=== PATIENT | male | born 1950 | race Caucasian/White ===

== ENCOUNTER 2018-09-07 08:47 | Outpatient (CLI) | payer OTHER, SELFPAY ==
[2018-09-08 08:39] LABS: PSA, Screening 0.4 ng/ml (0-4.5)
== END 2018-09-07 09:07 ==
PROVIDERS: PCP Family Medicine; Visit Provider Family Medicine
DX: Z12.5 Encounter for screening for malignant neoplasm of prostate (principal)
CPT/HCPCS: 36415; 84153

== ENCOUNTER 2019-01-24 08:15 | Outpatient (CLI) | payer OTHER, SELFPAY ==
[2019-01-24 11:00] LABS: Abs Immature Grans 0.03 k/cumm (0.0-0.09); Absolute Basophil Count 0.03 k/cumm (0.0-0.2); Absolute Eosinophil Count 0.07 k/cumm (0.0-0.7); Absolute Lymphocyte Count 1.08 k/cumm (1.2-3.4); Absolute Monocyte Count 0.45 k/cumm (0.11-0.7); Absolute Neutrophil Count 2.93 k/cumm (1.2-6.7); Basophils % 0.7; Eosinophils % 1.5; HCT 46.7 % (40.0-50.0); HGB 15.4 g/dL (13.5-17.5); Immature Grans % 0.7; Lymphocytes % 23.5; Mean Corpuscular Hemoglobin 30.3 pg (27.0-33.0); Mean Corpuscular Volume 91.7 fL (80-95); Mean Platelet Volume 11.3 fL (8.0-11.0); Monocytes % 9.8; Neutrophils % 63.8; Platelet Count 146 x1000/uL (130-400); RBC 5.09 m/cumm (4.50-6.00); White Blood Cell Count 4.59 k/cumm (4.4-10.8)
[2019-01-24 11:18] LABS: ALT 33 U/L (12-78); AST 29 U/L (15-37); Albumin 3.8 g/dL (3.4-5.0); Alkaline Phosphatase 45 U/L (46-116); Amylase 51 U/L (25-115); Anion Gap 11.2 mmol/L (3-11); BUN 22 mg/dL (7-18); Bilirubin, Total 0.6 mg/dL (0.2-1.0); CO2 24.8 mmol/L (21.0-32.0); Calcium 9.3 mg/dL (8.5-10.1); Chloride 105 mmol/L (98-107); Glucose 93 mg/dL (70-100); Lipase 127 U/L (73-393); Potassium 4.3 mmol/L (3.5-5.1); Sodium 141 mmol/L (136-145); TSH (W/Ref FT4) 1.07 uIU/mL (0.358-3.74); Total Protein 6.6 g/dL (6.4-8.2)
[2019-01-24 11:27] LABS: GGT 31 U/L (15-85)
[2019-01-25 11:49] LABS: IgA 182 mg/dL (85-499); Interpretation SEE COMMENTS; Tissue Transglutaminase IgA <1.2 U/mL (<4.0)
== END 2019-01-24 08:35 ==
PROVIDERS: PCP Family Medicine; Visit Provider Family Medicine
DX: K92.89 Other specified diseases of the digestive system (principal); R53.83 Other fatigue
CPT/HCPCS: 36415; 80053; 82784; 83516; 83690; 82150; 82977; 84443; 85025

== ENCOUNTER 2019-01-25 07:59 | Outpatient (REF) | payer OTHER, SELFPAY ==
[2019-01-26 12:20] LABS: Helicobacter pylori Ag, Feces Negative (NEGAT)
== END 2019-01-25 08:19 ==
LOC: LBN 07:59
PROVIDERS: PCP Family Medicine; Visit Provider Family Medicine
DX: K92.89 Other specified diseases of the digestive system (principal)
CPT/HCPCS: 87329; 87338

== ENCOUNTER 2019-02-06 01:49 | Outpatient (CLI) | payer OTHER, SELFPAY ==
--- NOTE | 2019-02-06 12:17 | DI.CT_ITS ---
SYMPTOMS/DIAGNOSIS: PERSISTENT NAUSEA AND ABDOMINAL PAIN, R11.0, R10.9 CT OF THE ABDOMEN AND PELVIS: Comparison is made with August,. Images were performed from the lung bases through the ischial tuberosities after IV and oral contrast. The heart size is normal. The lung bases show mild motion, but appear clear. The liver, gallbladder, spleen, pancreas and adrenals are unremarkable. Multiple parapelvic cysts are noted in the left kidney. There is a small cortical cyst inferiorly. No stones or hydronephrosis are seen. The oral contrast extends to the distal small bowel. The colon is not opacified. There is a moderate quantity of stool. There is no bowel wall thickening or inflammatory change. There are diverticula of the sigmoid colon, but no evidence of diverticulitis. The stomach and small bowel are unremarkable. There is a left hip prosthesis creating mild artifact in the level of the pelvis. The bladder and prostate are unremarkable. No inguinal or abdominal wall hernias are seen. Degenerative disc changes are greatest at L4-5 on the right side. Scoliosis is also present. Schmorl's nodes are again noted in both superior and inferior endplates of L3. IMPRESSION: Diverticulosis without evidence of diverticulitis.
[2019-02-06] MEDS: Omnipaque 350 MG/ML 100 ML BTL IJ (13:43)
[2019-02-06] MEDS: Breeza Beverage 473 ML BTL PO ×2 (13:44→13:45)
== END 2019-02-06 02:09 ==
PROVIDERS: PCP Family Medicine; Visit Provider Family Medicine
DX: R10.9 Unspecified abdominal pain (principal); R11.0 Nausea; K57.30 Diverticulosis of large intestine without perforation or abscess without bleeding
CPT/HCPCS: 74177; J3490

== ENCOUNTER 2019-05-18 08:22 | Outpatient (CLI) | payer OTHER, SELFPAY ==
--- NOTE | 2019-05-18 08:15 | DI.RAD_ITS ---
EXAM: XR HIP LT COMPLETE AP PELVIS INDICATION: HIP PAIN. COMPARISON: No exams were available for comparison TECHNIQUE: 2D digital imaging was performed. FINDINGS: Some grade 2 views were obtained in position on the left. The components appear well seated. Modera te degenerative changes of the right hip noted as well. IMPRESSION:
== END 2019-05-18 08:42 ==
PROVIDERS: PCP Family Medicine; Visit Provider Student in an Organized Health Care Education/Training Program
DX: M25.552 Pain in left hip (principal); Z96.642 Presence of left artificial hip joint; M16.11 Unilateral primary osteoarthritis, right hip
CPT/HCPCS: 73502

== ENCOUNTER 2019-07-06 02:20 | Outpatient (CLI) | payer OTHER, SELFPAY ==
--- NOTE | 2019-07-06 10:37 | DI.NM_ITS ---
EXAM: NM BONE SCAN 3 PHASE CLINICAL HISTORY: painful L TONY, pain in hip region after hip replacement,m25.559,z96.649 TECHNIQUE: Injected Dose: 24.8 mCi Tc-99m MDP COMPARISON: XR HIP LT COMPLETE AP PELVIS from 05/18/2019 FINDINGS: Perfusion: Symmetric. No abnormal increased radiotracer uptake. Blood Pool: Symmetric. No abnormal increased radiotracer uptake. Delayed: There is variable mild to moderate increased radiotracer uptake surrounding the femoral comp onent of the left hip prosthesis. There is normal radiotracer uptake in the kidneys and urinary blad sachi. There is a focus of radiotracer uptake on the right at the L5 vertebral body. This likely repr esents degenerative disease. There is symmetric increased radiotracer uptake in the shoulders bilate rally which is likely degenerative. There is a mild right convex scoliotic curvature of the lumbar s pine. IMPRESSION: 1. Increased radiotracer uptake around the femoral component of the left hip prosthesis on the delaye d imaging suspicious for loosening.
== END 2019-07-06 02:40 ==
PROVIDERS: PCP Family Medicine; Visit Provider Student in an Organized Health Care Education/Training Program
DX: M25.552 Pain in left hip (principal); Z96.642 Presence of left artificial hip joint; Z47.1 Aftercare following joint replacement surgery
CPT/HCPCS: 78315

== ENCOUNTER 2019-09-30 07:03 | Emergency (ER) | payer OTHER, SELFPAY ==
--- NOTE | 2019-09-30 07:09 | ED.GENADUL_ITS ---
Discharge Plan Disposition Patient Disposition: HOME Discharge Details Chief Complaint: GenMedical Clinical Impression: Postoperative wound infection of left hip Primary Care Provider: Evy Davis ED Provider: Lauri Vasquez Home Meds and New Rx's Prescriptions: New cephalexin [Keflex] 500 mg capsule 500 mg PO QID Qty: 39 RF: 0 doxycycline hyclate 100 mg tablet 100 mg PO BID Qty: 19 RF: 0 Continued sertraline 50 mg tablet 50 mg PO DAILY Qty: 90 RF: 4 Eliquis 5 mg tablet 5 mg PO BID Qty: 60 RF: 1 gabapentin 300 mg Capsule 300 mg PO QHS RF: 0 Discharge Instructions Instructions: Surgical Site Infections (ED) Additional Instructions: Please take full course of antibiotic (doxycycline and keflex) as prescribed. Please contact your primary care physician to arrange follow-up. Please contact [facility] orthopedic department to follow-up on Wednesday for reassessment. Dr. Comer, [facility] orthopedics, would be happy to answer questions and can be reached at , I would recommend that you take photos of left hip daily to document progression of inflammation. Return to the ER immediately for any worsening or new concerning symptoms. Referrals: Evy Davis MD, [place] [Primary Care Provider] - Discharge Data Discharge Date/Time-TO BE ENTERED AT DEPARTURE: 09/30/19 11:12 Medical Decision Making <Mervin Aguilera MD - Last Filed: 09/30/19 07:29> 69 yo male who denies chronic medical problems comes in with complaint of fever to 100.5. He states he had a revision of prior left hip surgery this week at [facility] and did have a garza placed and is on prophylactic apixaban per patient. He noticed a fever today and has had some discomfort with urination with increased amounts of urination. Denies drainage from surgical site, cough, recent travel abdominal pain, headaches. He is able to ambulate using crutches. His left leg wound from the surgery is closed without drainage but around the wound about 3-4 cm is erythematous warm skin and he states he has noticed some increased discomfort in this area. Could be post op infection, will obtain lab work including cultures, lactate, inflammatory markers and monitor Differential Diagnosis Differential Diagnosis: uti, septic joint, influenza, pna <Lauri Vasquez MD - Last Filed: 10/03/19 22:05> 8:00 -- Care signed out by Dr. Aguilera. Please see his documentation regarding initial ED presentation and course. Plan at signout was to follow-up on labs and x-ray and reassess patient. 9:15 --x-ray of the left hip reviewed and interpreted by radiology: There is no evidence of acute fracture. There is no evidence of malalignment or dislocation. X-ray of the left femur interpreted by radiology: Left total hip replacement. There is no evidence of acute fracture. There is no evidence of malalignment or dislocation. Labs reviewed: Normal white count. Normal creatinine. Urinalysis normal. Normal lactate. Significantly elevated ESR and CRP. I reassessed patient and he does seem to have erythema surrounding surgical wound. Erythema border was marked with skin marker. I am concerned about postoperative cellulitis. I will initiate treatment with cefazolin 2 g IV. Will consult orthopedics. --I called and spoke with on-call Dr. Arzate who recommends discussing case with [facility] orthopedics given lack of interventional resources here at [facility]. 9:45 -- I spoke with Dr. Porras, orthopedics bridge/structure inspection team leader at [facility], I discussed ED presentation and course including all diagnostics and my concern for cellulitis versus potential deeper space infection, she recommends starting keflex PO and discharging with close outpatient at [facility] ortho clinic. She recommends against vancomycin. I specifically inquired if transfer indicated so that she could assess the postoperative wound and she noted that this was not necessary at this time. Plan as outlined by patient's nuclear weapons specialist will be to discharge on Keflex with follow-up with orthopedics on Wednesday. HPI <Mervin Aguilera MD - Last Filed: 09/30/19 07:29> General Mode of arrival: ambulatory . Date/Time Provider Initiated Documentation: 09/30/19 07:04 . Limitations to Documentation: no limitations . Information obtained by: patient . History of Present Illness 69 year old M presents to the emergency department with the chief complaint of fever, described as moderate, Patient started experiencing this hour(s) (3) and it has been constant. No relieving factors improve symptom(s), No exacerbating factors reported . Patient notes other (dysuria). Patient did receive the following treatments prior to arrival, none Related Data Home Medications Medication Instructions Recorded Confirmed sertraline 50 mg tablet 50 mg PO DAILY #90 tab 04/18/19 09/30/19 apixaban 5 mg tablet 5 mg PO BID #60 tab 09/22/19 09/30/19 cephalexin [Keflex] 500 mg PO QID #39 cap 09/30/19 doxycycline hyclate 100 mg PO BID #19 tab 09/30/19 gabapentin 300 mg PO QHS 09/30/19 09/30/19 Previous Rx's Medication Instructions Recorded sertraline 50 mg tablet 50 mg PO DAILY #90 tab 04/18/19 apixaban 5 mg tablet 5 mg PO BID #60 tab 09/22/19 cephalexin [Keflex] 500 mg PO QID #39 cap 09/30/19 doxycycline hyclate 100 mg PO BID #19 tab 09/30/19 Allergies Allergy/AdvReac Type Severity Reaction Status Date / Time No Known Allergies Allergy Verified 09/30/19 07:18 Review of Systems <Mervin Aguilera MD - Last Filed: 09/30/19 07:29> All systems reviewed & are unremarkable except as noted in HPI and below Cardiovascular Cardiovascular: Denies chest pain and Denies dyspnea Respiratory Respiratory: Denies cough and Denies dyspnea Gastrointestinal Gastrointestinal: Denies abdominal pain, Denies nausea and Denies vomiting PFSH <Mervin Aguilera MD - Last Filed: 09/30/19 07:29> Medical History Benign non-nodular prostatic hyperplasia with lower urinary tract symptoms (Inactive 05/21/15) Squamous cell carcinoma of scalp (Inactive 05/21/15) Surgical History Diagnostic Laproscopy (12/20/17) VENTRAL HERNIA NORMAL EXAM;[facility] History of arthroplasty of left hip (Acute) 2014 Social History Smoking/Tobacco Use Status: Never Alcohol Intake: current Drug use: Never Substance use type: does not use Do you feel safe at home: Yes Do you feel safe in your relationship?: Yes Exam <Mervin Aguilera MD - Last Filed: 09/30/19 07:29> Const General: no acute distress Orientation: alert HENMT Head: normal to inspection Ears: external ears normal General nose exam: external nose normal Mouth: moist mucous membranes Eyes General: appearance normal, both eyes and all related structures Neck Neck: normal visual inspection Resp Effort & Inspection: normal respiratory effort and able to speak in complete sentences Cardio Rate: regular rate Skin General skin exam: no rashes or lesions noted Neuro General: alert and oriented x3 Extrem General: normal to inspection Psych Mental Status: mental status grossly normal Sign Out <Mervin Aguilera MD - Last Filed: 09/30/19 07:29> Sign Out Data: Sign Out Comment: left hip replacement revision this past week at [facility] now with fever to 100.5 and some erythema around surgical site. Follow up on lab results, imaging and dispo Last updated by Mervin Aguilera MD at 09/30/19 07:40
[2019-09-30 07:14] VITALS: BP 124/71; PULSE 87; RESP 16; TEMP 37.4; O2SAT 95
[2019-09-30 07:20] LABS: Bilirubin Negative (Negative); Blood Negative (Negative); Clarity Clear (Clear); Glucose Negative (Negative); Ketones Negative (Negative); Leukocyte Esterase Negative (Negative); Nitrite Negative (Negative); Urobilinogen 0.2 EU/dL (Up TO 0.2)
[2019-09-30 07:21] VITALS: RESP 16
[2019-09-30] MEDS: Apixaban 2.5 MG TAB PO (07:31)
[2019-09-30 07:55] LABS: Lactate 0.8 mmol/L (0.6-1.4)
[2019-09-30 07:57] LABS: Abs Immature Grans 0.03 k/cumm (0.0-0.09); Absolute Basophil Count 0.03 k/cumm (0.0-0.2); Absolute Eosinophil Count 0.08 k/cumm (0.0-0.7); Absolute Lymphocyte Count 0.78 k/cumm (1.2-3.4); Absolute Monocyte Count 0.77 k/cumm (0.11-0.7); Absolute Neutrophil Count 5.59 k/cumm (1.2-6.7); Basophils % 0.4; Eosinophils % 1.1; HCT 37.2 % (40.0-50.0); HGB 12.3 g/dL (13.5-17.5); Immature Grans % 0.4 %; Lymphocytes % 10.7; Mean Corp. HGB Concentration 33.1 g/dL (32.0-36.0); Mean Corpuscular Hemoglobin 30.6 pg (27.0-33.0); Mean Corpuscular Volume 92.5 fL (80-95); Mean Platelet Volume 10.8 fL (8.0-11.0); Monocytes % 10.6; Neutrophils % 76.8; Platelet Count 171 x1000/uL (130-400); RBC 4.02 m/cumm (4.50-6.00); RBC Distribution Width 13.8 % (11.8-14.1); White Blood Cell Count 7.28 k/cumm (4.4-10.8)
[2019-09-30 08:11] LABS: C-Reactive Protein 11.82 mg/dL (0.0-0.3)
[2019-09-30 08:12] LABS: ALT 44 U/L (16-63); AST 74 U/L (15-37); Alkaline Phosphatase 34 U/L (46-116); Anion Gap 8.6 mmol/L (3-11); BUN 17 mg/dL (7-18); Bilirubin, Total 0.6 mg/dL (0.2-1.0); CO2 27.4 mmol/L (21.0-32.0); CREATININE 0.99 mg/dL (0.70-1.30); Calcium 8.6 mg/dL (8.5-10.1); Chloride 106 mmol/L (98-107); Glucose 103 mg/dL (74-106); Magnesium 1.9 mg/dL (1.8-2.4); Sodium 142 mmol/L (136-145); Total Protein 6.6 g/dL (6.4-8.2)
[2019-09-30 08:22] LABS: PTT Activated 25.3 sec (21.0-31.4); Prothrombin Time 10.3 sec (9.3-11.0)
--- NOTE | 2019-09-30 08:25 | DI.RAD_ITS ---
EXAM: XR PELVIS AP INDICATION: hip surgery this week, fever, pain. COMPARISON: XR HIP LT COMPLETE AP PELVIS from 05/18/2019 XR FEMUR LT from 09/30/2019 TECHNIQUE: 2D digital imaging was performed. FINDINGS: The patient has had a recent revision of the left total hip replacement. No acute fracture or disloc ation is seen. There are degenerative changes seen in the lumbar spine. The soft tissues are unrema rkable. IMPRESSION: No acute fracture or dislocation.
--- NOTE | 2019-09-30 08:33 | DI.RAD_ITS ---
EXAM: XR FEMUR LT INDICATION: fever, pain. hip surgery this week. COMPARISON: XR HIP LT COMPLETE AP PELVIS from 05/18/2019 TECHNIQUE: 2D digital imaging was performed. FINDINGS: The patient has had a left total hip revision since the prior examination 05/18/2019. There is a elias ency around the medial aspect of the femoral component. Correlation should be made with the postoper ative images from the revised prosthetic. No acute fracture or dislocation is present. The soft tis sues are unremarkable. IMPRESSION: No acute fracture or dislocation.
[2019-09-30 08:42] VITALS: PULSE 79; TEMP 37.1; O2SAT 94
[2019-09-30 08:43] LABS: ESR 59 mm/hr (1-20)
--- NOTE | 2019-09-30 08:47 | DI.VRAD_ITS ---
PROCEDURE INFORMATION: Exam: XR Pelvis Exam date and time: 09/30/2019 8:24 AM Age: 69 years old Clinical indication: Prior surgery; Surgery date: 3-7 days post-operative; Surgery type: Hip replacement this week. Fever and pain TECHNIQUE: Imaging protocol: XR pelvis. Views: 1 or 2 view. COMPARISON: No relevant prior studies available. FINDINGS: Bones/joints: Left total hip replacement Degenerative changes in the lumbar spine and right hip There is no evidence of acute fracture.There is no evidence of malalignment or dislocation. Soft tissues: Unremarkable. IMPRESSION: There is no evidence of acute fracture.There is no evidence of malalignment or dislocation. Dictated and Authenticated by: Karen Anne MD. Ordering:YASSINE Jeffries MD
--- NOTE | 2019-09-30 08:48 | DI.VRAD_ITS ---
PROCEDURE INFORMATION: Exam: XR Left Femur Exam date and time: 09/30/2019 8:25 AM Age: 69 years old Clinical indication: Prior surgery; Surgery date: 3-7 days post-operative; Surgery type: Left hip surgery this week, pain and fever. TECHNIQUE: Imaging protocol: XR Left femur. Views: Five views. COMPARISON: No relevant prior studies available. FINDINGS: Bones/joints: Left total hip replacement. There is no evidence of acute fracture.There is no evidence of malalignment or dislocation. Soft tissues: Soft tissue swelling laterally consistent with recent surgery IMPRESSION: 1. Left total hip replacement. 2. There is no evidence of acute fracture.There is no evidence of malalignment or dislocation. Dictated and Authenticated by: Karen Anne MD. Ordering:YASSINE Jeffries MD
[2019-09-30] MEDS: ceFAZolin 2 GM/50 ML BAG IVPB (09:17)
[2019-09-30] MEDS: Doxycycline Hyclate 100 MG CAP PO (10:24)
--- NOTE | 2019-09-30 11:16 | OCONE_ITS ---
Date of service: 09/30/19 Time of Service: 11:16 History of Present Illness History of Present Illness Chief Complaint: Left hip infection Narrative: Chief Complaint: Left hip postoperative infection HPI: 69-year-old male postop day #3 status post left hip [address] Adam Ricci at [facility] on 09/27/2023 aseptic loosening of the femoral component after a primary anterior hip replacement done in the past. Patient discharged home postoperative day #1 following 24 hours of perioperative cefazolin antibiotics. States all specimens/cultures from surgery are negative as far as he knows for infection. Has had 1 reported fever this morning greater than 100 degrees associated with feeling unwell. Denies any drainage or purulence from the incision. Presents to the ER with his daughter for evaluation the left hip cellulitis. 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 No attempted treatments yet for the inflammation/cellulitis. His revision arthroplasty surgeon is reportedly out of town/unavailable this weekend. Consult Reason Left hip prosthetic joint infection Assessment and Plan Assessment and plan (1) Postoperative wound infection of left hip: Status: Acute Assessment and plan: 69-year-old male postop day #3 status post left hip to component revision arthroplasty for aseptic loosening by Dr. Adam Ricci at [facility] on 09/27/2019 Patient appears to have an impressive amount of cellulitis surrounding the surgical site without wound dehiscence, purulent drainage, or other obvious evidence of an early deep space infection. Recommended reaching out to primary arthroplasty surgeon for treatment recommendations as any postoperative infection over a joint replacement warrants heightened concern and this is an infected surgical site over revision arthroplasty. The ER physician Dr. Lauri Vasquez spoke with the on-call covering orthopedist who did not recommend urgent evaluation at [facility] and recommended Keflex oral antibiotic treatment. I have discussed the findings, treatment options, and my recommendations at length with the patient who is well-informed as a medical doctor and the present of his daughter. I discussed the urgent but not emergent need to treat this problem. The patient is not septic. Does not require transfer to [facility] or inpatient admission at this time. The options for treatment today include surgical irrigation debridement, interventional radiology aspiration of the hip through an anterior approach to avoid area of cellulitis, and antibiotics. Would recommend any irrigation debridement should be done by the primary surgeon. Any IR aspiration would have to be done at [facility] as we do not have interventional radiologist here at [facility]. The patient is okay trying a course of oral antibiotics. 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 The patient is agreeable to doxycycline and Keflex antibiotics. I think this a reasonable regimen. I also recommend probiotics to be used daily while on antibiotics. I recommend close monitoring for signs of worsening like recurrent fevers, or signs of deep space infection deep infection like wound dehiscence or purulent drainage, which would necessitate surgical irrigation and debridement within 7 to 14 days in order to have the best chance of preserving the revision hip replacement and avoiding significant biofilm formation necessitating hip component expectation. Recommend the patient follow-up with his primary arthroplasty revision surgeon Dr. Ricci at [facility] in 2 to 3 days. Otherwise, I am available to reassess the wound here at [facility] orthopedics on Wednesday or Wednesday. All questions were answered. The patient and his daughter agree and understand treatment plan. The patient has my personal cell phone number and will keep me updated. Review of Systems Constitutional Constitutional: Reports as per HPI and Reports fever(s) Musculoskeletal Musculoskeletal: Reports abnormal gait and Reports muscle weakness Integumentary/Breasts Skin/Breast: Reports erythema and Reports rash Neurologic Neurologic: Reports abnormal gait [facility] Medical History Benign non-nodular prostatic hyperplasia with lower urinary tract symptoms (Inactive 05/21/15) Squamous cell carcinoma of scalp (Inactive 05/21/15) Surgical History Diagnostic Laproscopy (12/20/17) VENTRAL HERNIA NORMAL EXAM;[facility] History of arthroplasty of left hip (Acute) 2014 Social History Smoking/Tobacco Use Status: Never Alcohol Intake: current Drug use: Never Substance use type: does not use Do you feel safe at home: Yes Do you feel safe in your relationship?: Yes Exam Const General: cooperative, comfortable and no acute distress Orientation: alert, awake and not confused Limitations: mental status not altered and no language barrier Resp Effort & Inspection: normal respiratory effort, able to speak in complete sentences, no audible wheezes and no grunting General: deferred Skin General skin exam: no ecchymosis and erythema Rashes: rashes noted Neuro General: alert, awake and oriented x3 Cognition: normal cognition Speech: speech normal Extrem Other: Left hip: Posterior lateral incision covered with operative silver impregnated bandage. Minimal drainage. No purulence. Photos of incision from bandage previously removed do not show any wound dehiscence, drainage, or purulence. Impressive erythema surrounding large area about operative site. Erythema blanches easily with pressure and is largely nontender. No appreciable fluid collection. Skin intact. No signs of thrombophlebitis or DVT. Results Last Vital Signs Temp 98.8 F 09/30/19 08:42 Pulse 79 09/30/19 08:42 Resp 16 09/30/19 07:21 BP 124/71 09/30/19 07:14 Pulse Ox 94 L 09/30/19 08:42 Labs Result diagrams: 09/30/19 07:44 09/30/19 07:44 Labs: Laboratory Results - last 24 hr 09/30/19 09/30/19 09/30/19 07:12 07:44 07:44 WBC RBC Hgb Hct MCV MCH MCHC RDW Plt Count MPV Immature Gran % Neutrophils % Lymphocytes % Monocytes % Eosinophils % Basophils % Absolute Neutrophils Absolute Lymphocytes Absolute Monocytes Absolute Eosinophils Absolute Basophils ESR PT INR APTT Sodium 142 Potassium 4.0 Chloride 106 Carbon Dioxide 27.4 Anion Gap 8.6 BUN 17 Creatinine 0.99 Estimated GFR/1.73 m2 >= 60.00 Glucose 103 Lactate 0.8 Calcium 8.6 Magnesium 1.9 Total Bilirubin 0.6 AST 74 H ALT 44 Alkaline Phosphatase 34 L C-Reactive Protein Total Protein 6.6 Albumin 3.0 L Urine Color Yellow Urine Clarity Clear Urine pH 6.0 Ur Specific [place] 1.020 Urine Protein Negative Urine Ketones Negative Urine Blood Negative Urine Nitrite Negative Urine Bilirubin Negative Urine Urobilinogen 0.2 Ur Leukocyte Esterase Negative Urine Glucose Negative 09/30/19 09/30/19 09/30/19 07:44 07:44 07:44 WBC 7.28 RBC 4.02 L Hgb 12.3 L Hct 37.2 L MCV 92.5 MCH 30.6 MCHC 33.1 RDW 13.8 Plt Count 171 MPV 10.8 Immature Gran % 0.4 Neutrophils % 76.8 Lymphocytes % 10.7 Monocytes % 10.6 Eosinophils % 1.1 Basophils % 0.4 Absolute Neutrophils 5.59 Absolute Lymphocytes 0.78 L Absolute Monocytes 0.77 H Absolute Eosinophils 0.08 Absolute Basophils 0.03 ESR PT 10.3 INR 1.0 APTT 25.3 Sodium Potassium Chloride Carbon Dioxide Anion Gap BUN Creatinine Estimated GFR/1.73 m2 Glucose Lactate Calcium Magnesium Total Bilirubin AST ALT Alkaline Phosphatase C-Reactive Protein 11.82 H Total Protein Albumin Urine Color Urine Clarity Urine pH Ur Specific [place] Urine Protein Urine Ketones Urine Blood Urine Nitrite Urine Bilirubin Urine Urobilinogen Ur Leukocyte Esterase Urine Glucose 09/30/19 07:44 WBC RBC Hgb Hct MCV MCH MCHC RDW Plt Count MPV Immature Gran % Neutrophils % Lymphocytes % Monocytes % Eosinophils % Basophils % Absolute Neutrophils Absolute Lymphocytes Absolute Monocytes Absolute Eosinophils Absolute Basophils ESR 59 H PT INR APTT Sodium Potassium Chloride Carbon Dioxide Anion Gap BUN Creatinine Estimated GFR/1.73 m2 Glucose Lactate Calcium Magnesium Total Bilirubin AST ALT Alkaline Phosphatase C-Reactive Protein Total Protein Albumin Urine Color Urine Clarity Urine pH Ur Specific [place] Urine Protein Urine Ketones Urine Blood Urine Nitrite Urine Bilirubin Urine Urobilinogen Ur Leukocyte Esterase Urine Glucose Imaging Additional studies: WBC within normal limits. Significantly elevated ESR and CRP. Imaging Studies: Left hip and femur x-rays show revision acetabulum and femoral components without obvious signs of loosening, periprosthetic fracture, or deep space fluid/gas collection.
== END 2019-09-30 11:12 | disposition home or self-care (01) ==
PROVIDERS: Emergency Medicine; Emergency Provider Student in an Organized Health Care Education/Training Program; PCP Family Medicine
DX: T81.41XA Infection following a procedure, superficial incisional surgical site, initial encounter (principal); Y83.1 Surgical operation with implant of artificial internal device as the cause of abnormal reaction of the patient, or of later complication, without mention of misadventure at the time of the procedure; M25.552 Pain in left hip; G89.18 Other acute postprocedural pain; R30.0 Dysuria; Z79.01 Long term (current) use of anticoagulants
CPT/HCPCS: 36415; 73552; 80053; 85652; 87040; 87449; 96365; 99252; 99284; 72170; 81003; 83605; 83735; 85025; 85610; 85730; 86140; 87086; J0690

== ENCOUNTER 2019-11-05 03:01 | Outpatient (REF) | payer OTHER, SELFPAY | END 2019-11-05 03:21 | LOC: LBN 03:01 | PROVIDERS: PCP Family Medicine; Visit Provider Family Medicine | DX: J06.9 Acute upper respiratory infection, unspecified (principal); Z11.59 Encounter for screening for other viral diseases | CPT/HCPCS: 87449 ==

== ENCOUNTER 2019-11-17 08:40 | Outpatient (CLI) | payer OTHER, SELFPAY ==
[2019-11-20 16:50] LABS: SARS-CoV-2 RNA Undetected (Undetected); SARS-CoV-2 Specimen Source Nasopharynx
== END 2019-11-17 09:00 ==
PROVIDERS: PCP Family Medicine; Visit Provider Family Medicine
DX: Z11.59 Encounter for screening for other viral diseases (principal)
CPT/HCPCS: U0003

== ENCOUNTER 2021-01-10 02:16 | Outpatient (CLI) | payer OTHER, SELFPAY ==
[2021-01-11 14:22] LABS: COVID-19 RT-PCR UVMMC Result Negative (Negative)
== END 2021-01-10 02:17 | disposition home or self-care (01) ==
LOC: LBO 02:16
PROVIDERS: PCP Family Medicine; Visit Provider Emergency Medicine
DX: Z20.822 Contact with and (suspected) exposure to COVID-19 (principal)
CPT/HCPCS: U0003

== ENCOUNTER 2021-02-12 19:38 | Outpatient (REF) | payer OTHER, SELFPAY ==
[2021-02-13 01:11] LABS: COVID-19 RT-PCR UVMMC Result Negative (Negative)
== END 2021-02-12 19:39 | disposition home or self-care (01) ==
LOC: LBN 19:38
PROVIDERS: PCP Family Medicine; Visit Provider Family Medicine
DX: Z20.822 Contact with and (suspected) exposure to COVID-19 (principal)
CPT/HCPCS: U0003

== ENCOUNTER 2021-04-02 19:07 | Outpatient (REF) | payer OTHER, SELFPAY ==
[2021-04-03 18:58] LABS: COVID-19 RT-PCR UVMMC Result Negative (Negative)
== END 2021-04-02 19:08 | disposition home or self-care (01) ==
LOC: LBN 19:07
PROVIDERS: PCP Family Medicine; Visit Provider Family Medicine
DX: Z20.822 Contact with and (suspected) exposure to COVID-19 (principal)
CPT/HCPCS: U0003

== ENCOUNTER 2021-07-01 16:09 | Outpatient (REF) | payer OTHER, SELFPAY ==
[2021-07-02 01:53] LABS: COVID-19 RT-PCR UVMMC Result Negative (Negative)
== END 2021-07-01 16:10 | disposition home or self-care (01) ==
LOC: LBN 16:09
PROVIDERS: PCP Family Medicine; Visit Provider Surgery
DX: Z20.822 Contact with and (suspected) exposure to COVID-19 (principal)
CPT/HCPCS: 87635; U0003

== ENCOUNTER 2021-07-28 03:44 | Outpatient (CLI) | payer OTHER, SELFPAY ==
[2021-07-29 02:18] LABS: COVID-19 RT-PCR UVMMC Result Negative (Negative)
== END 2021-07-28 03:45 | disposition home or self-care (01) ==
LOC: LBO 03:44
PROVIDERS: PCP Family Medicine; Visit Provider Surgery
DX: Z20.822 Contact with and (suspected) exposure to COVID-19 (principal); Z01.818 Encounter for other preprocedural examination
CPT/HCPCS: U0003

== ENCOUNTER 2021-07-30 10:24 | Day surgery (SDC) | payer OTHER, SELFPAY ==
--- NOTE | 2021-07-30 06:42 | W.PREOPHP ---
Date of service: 07/30/21 Time of Service: 10:59 Assessment and Plan Assessment and plan (1) Encounter for colorectal cancer screening: Status: Acute Assessment and plan: Pop is a pleasant 71 year old here for a screening colonoscopy. His last colonoscopy was 10 years ago and was normal. Risks, benefits and complications have been reviewed. Complications include but are not limited to bleeding, perforation, missed small polyp or lesion, sore throat, aspiration, bradycardia, and adverse reaction to the medications. Questions have been entertained and answered to his satisfaction and he wished to proceed. No guarantees were given or implied. History of Present Illness Narrative: Pop is here today to undergo a screening colonoscopy. He denies any changes in bowel habits, melena, hematochezia, abdominal pain, unintentional weight loss or family history of colon cancer. His last colonoscopy was 10 years ago and was normal. He denies any chest pain or palpitations. Review of Systems Constitutional Constitutional: Denies fatigue, Denies fever(s) and Denies headache(s) Eyes Eyes: Denies change in vision ENT Ears, Nose, Mouth, and Throat: Denies dysphagia and Denies headache(s) Cardiovascular Cardiovascular: Denies chest pain, Denies chest pain at rest, Denies irregular heart rhythm, Denies dyspnea and Denies dyspnea on exertion Respiratory Respiratory: Denies cough, Denies dyspnea and Denies dyspnea on exertion Gastrointestinal Gastrointestinal: Reports as per HPI, Denies dysphagia, Denies dyspepsia and Denies heartburn Genitourinary Genitourinary: Denies dysuria, Denies urinary incontinence and Denies urinary urgency Musculoskeletal Musculoskeletal: Reports system reviewed and no additional complaints, except as documented Neurologic Neurologic: Denies headache(s) Endocrine Endocrine: Reports system reviewed and no additional complaints, except as documented and Denies fatigue Hematologic/Lymphatic Hematologic/Lymphatic: Denies easy bruising and Denies lymphadenopathy PFSH All Active Problems (Updated 07/30/21 @ 06:45 by Yuliet Linton MD) Encounter for colorectal cancer screening (Acute) Biceps tendinitis of left shoulder (Acute) Shoulder pain, acute (Acute) TMJ (dislocation of temporomandibular joint) (Acute 05/21/15) Peripheral neuropathy (Acute 05/21/15) Postoperative wound infection of left hip (Acute) Pain in hip region after hip replacement (Acute) Sensorineural hearing loss of combined sites, bilateral (Acute 06/21/17) Medical History (Updated 07/30/21 @ 06:45 by Yuliet Linton MD) Benign non-nodular prostatic hyperplasia with lower urinary tract symptoms (05/21/15) 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) Surgical History Diagnostic Laproscopy (12/20/17) VENTRAL HERNIA NORMAL EXAM;[facility] History of arthroplasty of left hip 2014 Social History Smoking/Tobacco Use Status: Never Smoking risk assessment performed?: Yes Alcohol Intake: current Alcohol Intake frequency: a few times a week Alcohol type: beer Drug use: Never Substance use type: does not use Do you feel safe at home: Yes Do you feel safe in your relationship?: Yes Meds Allergies and Home Medications Allergies Allergy/AdvReac Type Severity Reaction Status Date / Time No Known Allergies Allergy Verified 07/30/21 10:35 Home Medications Medication Instructions Recorded Confirmed Type azelastine-fluticasone 137 mcg-50 1 spray INTRANASAL BID #69 g 05/15/21 07/30/21 Rx mcg/spray nasal spray clonazepam 0.5 mg PO HS 07/29/21 07/30/21 History Exam Const General: cooperative, comfortable and no acute distress HENMT Head: normocephalic and atraumatic Resp Effort & Inspection: normal respiratory effort Auscultation: clear to auscultation bilaterally Cardio Rate: regular rate Rhythm: regular rhythm GI Inspection: normal to inspection Palpation: soft and nontender
--- NOTE | 2021-07-30 06:48 | W.COLOREPORT ---
Colonoscopy Report Date of procedure: 07/30/21 Pre-op diagnosis general: Colon Cancer Screening Post-op diagnosis procedure note: other (polyps) Procedure: Colonoscopy with polypectomy Surgeon: Yuliet Linton Anesthesia Type: General:No Airway (Gene Cárdenas CRNA) Estimated blood loss (mL): 3 Pathology: other (ascending, transverse and sigmoid polyp) Complications: None Disposition: same day Indications: Pop is a pleasant 71 year old here for a screening colonoscopy. His last colonoscopy was 10 years ago and was normal. Risks, benefits and complications have been reviewed. Complications include but are not limited to bleeding, perforation, missed small polyp or lesion, sore throat, aspiration, bradycardia, and adverse reaction to the medications. Questions have been entertained and answered to his satisfaction and he wished to proceed. No guarantees were given or implied. Prep: Miralax/Dulcolax Procedure Start Time: 11:35 Procedure End Time: 11:56 Retraction Time: 11 minutes Findings: 3 < 5 mm polyps Procedure Description: After informed consent was obtained the patient was taken to the procedure room and placed in a left decubitous position. Monitors were applied and a time out was done. The patients name, date of , procedure, allergies to medications and metal in their body was reviewed. The patient was then sedated. Once sedated and comfortable a rectal exam was done. External exam was normal. Internal exam revealed a normal sphincter tone and no palpable masses. The prostate felt smooth and slightly enlarged. The scope was then introduced and retro-flexed. No internal hemorrhoids, polyps or masses were identified on retro-flexion. The scope was then advanced to the cecum without difficulty. The ileocecal vlave and appendiceal orifice were identified. The prep was good. The scope was then slowly retracted over 11 minutes back into the rectum. Polyps were removed with cold forceps in the ascending colon, transverse colon and sigmoid colon. There was no diverticulosis noted. The scope was removed and the patient was woken up and taken back to Same day surgery in stable condition. The patient tolerated the procedure well and there were no immediate complications. Follow up: Follow up will depend on final pathology.
--- NOTE | 2021-07-30 06:49 | W.PM.DSUDISC ---
Discharge Plan Disposition Patient Disposition: HOME Condition: Good Discharge Details Reason For Visit: Colonoscopy Attending Provider: Yuliet Linton Primary Care Provider: Evy Davis Home Meds and New Rx's Prescriptions: Continued azelastine-fluticasone [Dymista] 137-50 mcg/spray spray,non-aerosol 1 spray intranasal BID Qty: 69 RF: 4 clonazepam 0.5 mg tablet 0.5 mg PO HS RF: 0 Discharge Instructions Additional Instructions: Findings: 3 small polyps Follow up: will depend on the pathology results Please call if you develop: fevers >101.5 Nausea or Vomiting Abdominal pain that is not transient Rectal bleeding that is more then a tbsp A hard abdomen and inability to pass gas DAY SURGERY UNIT POST ENDOSCOPY INSTRUCTIONS Instructions for everyone who is given Anesthesia: For your safety, please do the following for the next 24 Hours: a. Do not drive or operate dangerous equipment b. Do not drink alcohol beverages or use any recreational drugs for the first 24 hours or while taking pain medications. The medications in your body may have a reaction that can be dangerous. c. Do not make any important decisions or sign any important papers 1. Generally there are no restrictions on your activity after a day or so has gone by, but you may feel a bit fatigued for a few days. 2. After you arrive home you may have a light meal and return to a normal diet as you can tolerate it without feeling sick to your stomach. 3. After surgery, you may feel pain or discomfort. This should be only transient, but if it persists please contact your doctor. 4. If there are any questions regarding the findings of your procedure, please feel free to contact your doctor. 6. If you are unable to contact your doctor with a problem, contact the hospital at [phone]. 7. Continue all your regular medications unless directed otherwise. I understand the above instructions and have no questions. Signature of Patient or Responsible Adult Escort Date/Time Name of Responsible Adult Escort Signature of Nurse Date/Time Activity:: Activity as Tolerated Diet:: As Tolerated Discharge Orders Discharge Orders: Discharge Order (Routine); Ordered 07/30/21 Ordered By: Yuliet Linton DS: Diagnosis Discharge Diagnosis (1) Encounter for colorectal cancer screening: Status: Acute
[2021-07-30 10:37] VITALS: BP 121/88; PULSE 69; RESP 16; TEMP 36.4; O2SAT 96
--- NOTE | 2021-07-30 10:52 | W.ANESPRE ---
General Info Date of Service Date Performed: 07/30/21 Height: 6 ft 3 in Weight: 85.2 kg Body Mass Index (BMI): 23.4 Surgical Procedure: Operation Date: 07/30/21 11:20 Proposed Procedures Side Surgeon p Colonoscopy Yuliet Linton MD Meds Allergies and Home Medications Allergies Allergy/AdvReac Type Severity Reaction Status Date / Time No Known Allergies Allergy Verified 07/30/21 10:35 Home Medication Medication Instructions Recorded azelastine-fluticasone 137 mcg-50 1 spray INTRANASAL BID #69 g 05/15/21 mcg/spray nasal spray clonazepam 0.5 mg PO HS 07/29/21 Current Visit Medications: Current Medications Generic Name Dose Route Start Last Admin Trade Name Freq PRN Reason Stop Dose Admin Hyoscyamine Sulfate 0.125 mg 07/30/21 06:49 Hyoscyamine 0.125 Mg Sl/Oral/Chew SL DIRECTED PRN Ringer's Solution 1,000 mls @ 80 mls/hr 07/30/21 06:00 IV 08/28/21 23:59 INFUSION [facility] IV Miscellaneous Supplies 1 each 07/30/21 06:00 Iv Access IV 08/28/21 23:59 DIRECTED MAEGAN Ondansetron HCl 4 mg 07/30/21 06:49 Ondansetron 4 Mg/2 Ml Vial IVP Q4H PRN PRN Nausea / Vomiting Sodium Chloride 0 ml 07/30/21 06:00 Normal Saline Flush 10 Ml Syr IV 08/28/21 23:59 PRN PRN Sodium Chloride 0 ml 07/30/21 06:00 Normal Saline 10 Ml Vial IJ 08/28/21 23:59 DIRECTED PRN Sterile Water 0 ml 07/30/21 06:00 Water,Injection,Sterile 10 Ml Vial IJ 08/28/21 23:59 DIRECTED PRN PFSH Active Problems Active Problems: Problem Status Onset Code Encounter for colorectal cancer screening Z12.11, Z12.12 Biceps tendinitis of left shoulder M75.22 Shoulder pain, acute M25.519 TMJ (dislocation of temporomandibular joint) 05/21/15 S03.00XA Peripheral neuropathy 05/21/15 G62.9 Postoperative wound infection of left hip T81.49XA Pain in hip region after hip replacement M25.559, Z96.649 Sensorineural hearing loss of combined sites, bilateral 06/21/17 H90.3 Medical History Medical History (Updated 07/30/21 @ 06:45 by Yuliet Linton MD) Benign non-nodular prostatic hyperplasia with lower urinary tract symptoms (05/21/15) 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) Surgical History Surgical History Diagnostic Laproscopy (12/20/17) VENTRAL HERNIA NORMAL EXAM;[facility] [place] History of arthroplasty of left hip 2014 Tobacco Smoking/Tobacco Use Status: Never Alcohol Alcohol Intake: current Alcohol intake frequency: a few times a week Alcohol type: beer Substance Use Substance use: Never Substance use type: does not use Vital Signs and Lab Results Vital Signs Most Recent Vital Signs in EMR: Most Recent Vital Signs Temp Pulse Resp BP Pulse Ox 36.4 C L 69 16 121/88 96 07/30/21 10:37 07/30/21 10:37 07/30/21 10:37 07/30/21 10:37 07/30/21 10:37 Lab Results Blood Type / Crossmatch: No Data to Display Complete Blood Count: No Data to Display Complete Metabolic Panel: No Data to Display Liver Function Panel: No Data to Display Coagulation Panel: No Data to Display Cardiac Panel: No Data to Display Arterial Blood Gas: No Data to Display Venous Blood Gas: No Data to Display Pancreas Panel: No Data to Display Thyroid Panel: No Data to Display Infectious Disease: Coronavirus (COVID-19)(PCR) Negative (Negative) 07/28/21 11:20 07/28/21 Blood Cultures: No Data to Display Toxicology Panel: No Data to Display Anesthesia Assessment and Plan Anesthesia History Personal History: No History of Anesthesia Complications Family History: No Family History of Anesthesia Complications Exercise Tolerance Exercise Tolerance: Metabolic Equivalents>4 Pertinent Negatives Pertinent Negatives: No Symptoms of GERD Cardiac & Pulmonary Exam Cardiac Exam: Normal S1/S2 Heart Sounds Pulmonary Exam: Clear Bilateral Breath Sounds Implantable Cardiac Device Does patient have a Pacemaker or an ICD?: No Airway Exam Known Difficult Airway: No Mallampati Class: 1 Mouth Opening: Normal (> 3cm) Thyromental Distance: Greater than 3 cm Neck Range of Motion: Full ROM Neck Circumference: Normal Teeth Condition: Normal Dentition ASA Classification ASA Score: ASA 2 Emergency Case?: No NPO Status NPO Status: NPO Clears >2 hours, Solids >8 hours Anesthesia Plan Resuscitation Status: Full Code Anesthesia Technique: General Anesthesia Airway Planned: Natural Airway Monitors Used: Standard Monitors
[2021-07-30] MEDS: Lactated Ringers 1,000 ML 80 ML IV (10:57)
[2021-07-30 11:22] VITALS: BMI 23.4
--- NOTE | 2021-07-30 11:46 | BOWEL_PTH ---
PATIENT: Juan Ramon Bourgeois LOC: [facility] U#:[id number] AGE/SX: 71/M ROOM: RE07/30/[address]: Yuliet Linton MD : 1950 BED: DIS: 07/30/2021 SPEC #: [id number] RECD: 07/30/21 13:09 STATUS: PANCHO BAIG #: [id number] PRABHJOT: 07/30/21 11:[address]: Yuliet Linton DEPT: Surgical Specimen RECD BY: Devorah Whitfield ENTERED: 07/30/21 13:09 SP TYPE: Bowel OTHR DR: Evy Davis MD, DC Tissues: 1 - BIOPSY BOWEL 2 - BIOPSY BOWEL 3 - BIOPSY BOWEL Procedures: GROSS AND MICRO LEVEL 4 Comments: [id number]
[2021-07-30 12:02] VITALS: BP 92/57; PULSE 66; RESP 16; TEMP 36.5; O2SAT 94
[2021-07-30 12:31] VITALS: BP 114/76; PULSE 67; RESP 16; TEMP 36.8; O2SAT 98
--- NOTE | 2021-07-30 14:27 | W.ANESPOSTOP ---
Postoperative Evaluation Date, Time and Location Date Performed: 07/30/21 Time Performed: 12:37 Patient Location: Day Surgery Unit Vital Signs Most Recent Imported Vital Signs: Most Recent Vital Signs Temp Pulse Resp BP Pulse Ox 36.8 C 67 16 114/76 98 07/30/21 12:31 07/30/21 12:31 07/30/21 12:31 07/30/21 12:31 07/30/21 12:31 Pain Score Most Recent Pain Score: Most Recent Pain Score Pain Level 0 07/30/21 12:31 Assessment Mental Status: Awake (Alert & Oriented to Patient Baseline) Airway and Respiratory Function: Patent airway with normal (patient baseline) respiratory exam Cardiovascular Function: Hemodynamically Stable Hydration Status: Adequately Hydrated Nausea & Vomiting: No Nausea or Vomiting Pain: Pt. Denies Any Pain Peripheral Nerve Block: Patient did not receive a nerve block
== END 2021-07-30 13:30 | disposition home or self-care (01) ==
LOC: SUR 10:24
PROVIDERS: PCP Family Medicine; Visit Provider Surgery
PROC: 0DJD8ZZ Inspection of Lower Intestinal Tract, Via Natural or Artificial Opening Endoscopic (ICD-10-PCS; CPT 45378; principal; 2021-07-30 11:15)
DX: Z12.11 Encounter for screening for malignant neoplasm of colon (principal); D12.3 Benign neoplasm of transverse colon; K63.5 Polyp of colon
CPT/HCPCS: 45380; 88305

== ENCOUNTER 2021-09-23 22:03 | Outpatient (REF) | payer OTHER, SELFPAY ==
[2021-09-25 07:14] LABS: COVID-19 RT-PCR UVMMC Result Indeterminate (Negative)
== END 2021-09-23 22:04 | disposition home or self-care (01) ==
LOC: LBN 22:03
PROVIDERS: PCP Family Medicine; Visit Provider Family Medicine
DX: Z86.16 Personal history of COVID-19 (principal); Z20.822 Contact with and (suspected) exposure to COVID-19
CPT/HCPCS: 87635; U0003

== ENCOUNTER 2021-09-25 13:37 | Outpatient (REF) | payer OTHER, SELFPAY ==
[2021-09-26 20:33] LABS: COVID-19 RT-PCR UVMMC Result Negative (Negative)
== END 2021-09-25 13:38 | disposition home or self-care (01) ==
LOC: LBN 13:37
PROVIDERS: PCP Family Medicine; Visit Provider Emergency Medicine
DX: Z86.16 Personal history of COVID-19 (principal)
CPT/HCPCS: U0003

== ENCOUNTER 2022-04-11 11:13 | Emergency (ER) | payer MEDICARE, OTHER, SELFPAY ==
--- NOTE | 2022-04-11 11:16 | ED.GENADUL_ITS ---
Discharge Plan Disposition Patient Disposition: HOME Condition: Stable Discharge Details Chief Complaint: GenMedical Clinical Impression: Close exposure to COVID-19 virus Primary Care Provider: Evy Davis ED Provider: Maximilian Young Home Meds and New Rx's Prescriptions: No Action azelastine-fluticasone [Dymista] 137-50 mcg/spray spray,non-aerosol 1 spray intranasal BID Qty: 69 4RF Rx Instructions: administer into each nostril. dispense 3 bottles acetazolamide 125 mg tablet 125 mg PO BID Qty: 20 0RF Rx Instructions: start 24 hour before accent zolpidem 10 mg tablet 10 mg PO QHS Qty: 30 5RF cephalexin 500 mg capsule 500 mg PO QID Qty: 60 0RF ondansetron 4 mg tablet,disintegrating 4 mg PO Q6H PRN (Reason: nausea and vomiting) Qty: 20 0RF clonazepam 0.5 mg tablet 0.5 mg PO HS Discharge Instructions Additional Instructions: We will call you with your COVID results this afternoon. Please return to the emergency department for any further needs. 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 Will obtain rapid COVID PCR here in the department. No acute distress nontoxic. Will call patient with results. HPI General Date/Time Provider Initiated Documentation: 04/11/22 11:14 . 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 Related Data Home Medications Medication Instructions Recorded Confirmed azelastine-fluticasone 137 mcg-50 1 spray intranasal BID #69 grams 05/15/21 09/08/21 mcg/spray nasal spray (Dymista) clonazepam 0.5 mg tablet 0.5 mg PO HS 07/29/21 09/08/21 acetazolamide 125 mg tablet 125 mg PO BID #20 tabs 09/30/21 zolpidem 10 mg tablet 10 mg PO QHS #30 tabs 10/28/21 cephalexin 500 mg capsule 500 mg PO QID #60 caps 12/09/21 ondansetron 4 mg disintegrating 4 mg PO Q6H PRN nausea and 12/09/21 tablet vomiting #20 tabs Previous Rx's Medication Instructions Recorded azelastine-fluticasone 137 mcg-50 1 spray intranasal BID #69 grams 05/15/21 mcg/spray nasal spray (Dymista) acetazolamide 125 mg tablet 125 mg PO BID #20 tabs 09/30/21 zolpidem 10 mg tablet 10 mg PO QHS #30 tabs 10/28/21 cephalexin 500 mg capsule 500 mg PO QID #60 caps 12/09/21 ondansetron 4 mg disintegrating 4 mg PO Q6H PRN nausea and 12/09/21 tablet vomiting #20 tabs Allergies Allergy/AdvReac Type Severity Reaction Status Date / Time No Known Allergies Allergy Verified 09/08/21 12:49 General Stated Complaint: GenMedical SIMON: 5 Review of Systems Narrative: Review of Systems Constitutional: negative Eyes: negative ENT: negative Cardiovascular: negative Respiratory: negative Gastrointestinal: negative : negative Musculoskeletal: negative Skin: negative Neurologic: negative Psych: negative PFSH All Active Problems (Updated 04/11/22 @ 11:18 by Maximilian Young MD) Close exposure to COVID-19 virus (Acute) COVID-19 (Acute) Annual physical exam (Acute) Fatigue (Acute) Hyperplastic colon polyp (Acute) Tubular adenoma of colon (Acute) Encounter for colorectal cancer screening (Acute) Biceps tendinitis of left shoulder (Acute) Shoulder pain, acute (Acute) TMJ (dislocation of temporomandibular joint) (Acute 05/21/15) Peripheral neuropathy (Acute 05/21/15) Postoperative wound infection of left hip (Acute) Pain in hip region after hip replacement (Acute) Sensorineural hearing loss of combined sites, bilateral (Acute 06/21/17) Medical History (Updated 04/11/22 @ 11:18 by Maximilian Young MD) Benign non-nodular prostatic hyperplasia with lower urinary tract symptoms (05/21/15) 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) Surgical History (Updated 08/01/21 @ 06:40 by Kinjal Kelly RN) Diagnostic Laproscopy (12/20/17) VENTRAL HERNIA NORMAL EXAM;[facility] BEDS AT [facility] History of arthroplasty of left hip 2015 History of colonoscopy (~07/2021) Social History Smoking/Tobacco Use Status: Never Smoking risk assessment performed?: Yes Alcohol Intake: current Alcohol Intake frequency: a few times a week Alcohol type: beer Drug use: Never Substance use type: does not use Do you feel safe at home: Yes Do you feel safe in your relationship?: Yes Exam Narrative Exam Narrative: Physical Examination General: alert, awake, cooperative, resting comfortably, no acute distress HEENT: normocephalic, atraumatic; PERRL, EOM intact, conjunctiva normal; no nasal discharge; moist mucous membranes, oral and pharyngeal mucosa normal, tolerating secretions Neck: supple, trachea midline; full ROM Chest: normal to inspection Respiratory: normal respiratory effort, speaking in full sentences, clear to aus cultation, no wheezing, rales or rhonchi Cardiac: regular rate, regular rhythm, S1S2 intact, no murmurs rubs or gallops GI: abdomen soft, non-tender, non-distended; no palpable mass or hepatosplenom egaly Skin: no lesions, rashes or trauma appreciated Neuro: AAOx3, normal speech, moving all extremities Psych: Appropriate mood and affect Course Vital Signs Vital signs: Comment 04/11/22 11:14
[2022-04-11 11:20] LABS: Source Nasal/Nares
[2022-04-11 11:57] LABS: COVID-19 PCR Negative (Negative)
== END 2022-04-11 11:18 | disposition home or self-care (01) ==
LOC: ER 11:39
PROVIDERS: Emergency Provider Emergency Medicine; PCP Family Medicine
DX: Z20.822 Contact with and (suspected) exposure to COVID-19 (principal)
CPT/HCPCS: 87635; 99281

== ENCOUNTER 2022-04-14 14:43 | Outpatient (CLI) | payer MEDICARE, OTHER, SELFPAY ==
--- NOTE | 2022-04-14 14:30 | RT.EKG_ITS ---
APPROVED REPORT Exam: Resting ECG Reason for Exam: tachycardia Patient Location: O HR:83 bpm ECG Measurements Heart Rate 83 AXIS [place] 178 P 80 QRSd 101 QRS 78 QT 347 T 269 QTc 408 Conclusion Sinus rhythm...normal P axis, V-rate 50- 99 Right atrial enlargement...P>0.25mV 2 lds or<-0.24mV aVR/aVL Left ventricular hypertrophy with repolarization abnormalities Baseline wander in lead(s) V6
== END 2022-04-14 14:44 | disposition home or self-care (01) ==
LOC: DI.CM 14:43
PROVIDERS: PCP Family Medicine; Visit Provider Family Medicine
DX: R00.0 Tachycardia, unspecified (principal); R94.31 Abnormal electrocardiogram [ECG] [EKG]
CPT/HCPCS: 93010

== ENCOUNTER 2022-04-14 19:15 | Outpatient (REF) | payer MEDICARE, SELFPAY ==
[2022-04-14 20:34] LABS: HCT 47.1 % (40.0-50.0); HGB 15.5 g/dL (13.5-17.5); MCH 30.3 pg (27.0-33.0); MCHC 32.9 % (32.0-36.0); MCV 92 fL (80-95); MPV 11.4 fL (8.0-11.0); Platelet Count 169 10^3/uL (130-400); RBC 5.11 10^6/uL (4.36-5.78); RDW 13.1 % (11.8-14.1); RDW-SD 44.7 fL; WBC 6.05 10^3/uL (4.4-10.8)
[2022-04-14 21:02] LABS: ALT 23 U/L (16-63); AST 25 U/L (15-37); Albumin 3.9 g/dL (3.4-5.0); Alkaline Phosphatase 41 U/L (46-116); Anion Gap 3.2 mmol/L (3-11); BUN 24 mg/dL (7-18); Bilirubin, Total 0.5 mg/dL (0.2-1.0); CO2 27.8 mmol/L (21.0-32.0); CREATININE 1.1 mg/dL (0.70-1.30); Calcium 9.1 mg/dL (8.5-10.1); Chloride 105 mmol/L (98-107); Estimated GFR 72.22 (mL/min/1.73m2); Glucose 96 mg/dL (74-106); Magnesium 2.2 mg/dL (1.8-2.4); Potassium 3.6 mmol/L (3.5-5.1); Sodium 136 mmol/L (136-145); TSH (W/Ref FT4) 0.68 uIU/mL (0.36-3.74); Total Protein 6.8 g/dL (6.4-8.2)
== END 2022-04-14 19:16 | disposition home or self-care (01) ==
LOC: LBN 19:15
PROVIDERS: PCP Family Medicine; Visit Provider Family Medicine
DX: R00.0 Tachycardia, unspecified (principal); R53.83 Other fatigue; Z00.00 Encounter for general adult medical examination without abnormal findings
CPT/HCPCS: 80053; 85027; 83735; 84443

== ENCOUNTER 2023-07-12 20:52 | Outpatient (REF) | payer MEDICARE, OTHER, SELFPAY ==
[2023-07-12 16:10] LABS: Calculated LDL 83 mg/dL (<100); Cholesterol 191 mg/dL (<200); HDL Cholesterol 87 mg/dL (40-60); Triglyceride 106 mg/dL (<150)
[2023-07-12 23:28] LABS: PSA, Diagnostic 0.4 ng/mL (<=6.5)
== END 2023-07-12 20:53 | disposition home or self-care (01) ==
LOC: LBN 20:52
PROVIDERS: PCP Family Medicine; Visit Provider Family Medicine
DX: I10 Essential (primary) hypertension (principal); N40.0 Benign prostatic hyperplasia without lower urinary tract symptoms
CPT/HCPCS: 80061; 84153

== ENCOUNTER 2023-07-20 14:57 | Outpatient (CLI) | payer MEDICARE, OTHER, SELFPAY ==
--- NOTE | 2023-07-20 13:00 | DI.RAD_ITS ---
Exam(s) XR SHOULDER LT COMPLETE 2+V EXAM: XR SHOULDER LT COMPLETE 2+V CLINICAL HISTORY: LEFT SHOULDER PAIN. TECHNIQUE: 2D digital imaging was performed. Two views. COMPARISON: No exams were available for comparison FINDINGS: BONES: No acute fracture is present. No bony destructive lesion is seen. Small subchondral cyst supe rior humeral head. JOINTS: No dislocation present. Glenohumeral joint space is maintained. There is minimal spurring a t the glenoid. AC joint shows no significant spurring. SOFT TISSUE: Normal. No soft tissue calcifications. IMPRESSION: Mild degenerative changes. DATA REPOSITORY: RADIATION DOSE DELIVERED:
== END 2023-07-20 14:58 | disposition home or self-care (01) ==
LOC: DIORS 14:57
PROVIDERS: PCP Family Medicine; Referring Provider Family Medicine; Visit Provider Student in an Organized Health Care Education/Training Program
DX: M25.512 Pain in left shoulder (principal); S43.432D Superior glenoid labrum lesion of left shoulder, subsequent encounter; X58.XXXD Exposure to other specified factors, subsequent encounter
CPT/HCPCS: 99213; 73030

== ENCOUNTER 2023-07-23 11:56 | Outpatient (REF) | payer MEDICARE, OTHER, SELFPAY ==
[2023-07-23 20:14] LABS: Anion Gap 10.8 mmol/L (3-11); BUN 19 mg/dL (7-18); CO2 26.2 mmol/L (21.0-32.0); CREATININE 1.1 mg/dL (0.70-1.30); Calcium 9.5 mg/dL (8.5-10.1); Chloride 105 mmol/L (98-107); Estimated GFR 71.32 (mL/min/1.73m2); Glucose 90 mg/dL (74-106); Magnesium 2.1 mg/dL (1.8-2.4); Potassium 4.6 mmol/L (3.5-5.1); Sodium 142 mmol/L (136-145); TSH (W/Ref FT4) 0.94 uIU/mL (0.36-3.74)
== END 2023-07-23 11:57 | disposition home or self-care (01) ==
LOC: LBN 11:56
PROVIDERS: PCP Family Medicine; Visit Provider Student in an Organized Health Care Education/Training Program
DX: R00.2 Palpitations (principal); E03.9 Hypothyroidism, unspecified
CPT/HCPCS: 80048; 83735; 84443

== ENCOUNTER 2023-09-07 14:21 | Outpatient (REF) | payer MEDICARE, OTHER, SELFPAY | END 2023-09-07 14:22 | disposition home or self-care (01) | LOC: LBN 14:21 | PROVIDERS: PCP Family Medicine; Visit Provider Family Medicine | DX: L08.89 Other specified local infections of the skin and subcutaneous tissue (principal); T81.49XA Infection following a procedure, other surgical site, initial encounter | CPT/HCPCS: 87077; 87070; 87186; 87205 ==

== ENCOUNTER 2024-04-03 17:48 | Emergency (ER) | payer MEDICARE, OTHER, SELFPAY ==
[2024-04-03 18:02] VITALS: BP 132/85; PULSE 68; RESP 18; O2SAT 95
--- NOTE | 2024-04-03 18:22 | W.ED.GENAD ---
Discharge Plan Disposition Patient Disposition: Home Condition: Improving Discharge Details Clinical Impression: Eyelid laceration Primary Care Provider: Evy Davis ED Provider: Maximilian Young Home Meds and New Rx's Prescriptions: No Action ibuprofen 600 mg tablet 600 mg PO TID PRN (Reason: pain) Qty: 180 2RF metoprolol succinate 25 mg tablet extended release 24 hr 25 - 50 mg PO DAILY Qty: 180 4RF Rx Instructions: Take 25 to 50 mg daily depending on heart rate and A fib venlafaxine 75 mg capsule,extended release 24hr 75 mg PO QAM Qty: 90 4RF Discharge Instructions Instructions: Laceration Repair With Stitches ED, Wound Care ED Additional Instructions: Your sutures are absorbable and should begin to follow-up within 7 to 10 days. Please return to the emergency department for any worsening symptoms. HPI General Date/Time Provider Initiated Documentation: 04/03/24 18:19. HPI Narrative: 73-year-old male presents with laceration to right lower eyelid, came into contact with a branch as he was riding his tractor. Patient's tetanus is up-to-date within the last 5 years. Denies visual changes. No other trauma Related Data Home Medications ?Medication ?Instructions ?Recorded ?Confirmed ibuprofen 600 mg tablet 600 mg PO TID PRN pain #180 tabs 02/08/23 04/03/24 metoprolol succinate 25 mg 25 - 50 mg (1 - 2 x 25 mg) PO 10/13/23 04/03/24 tablet,extended release 24 hr DAILY #180 tabs venlafaxine 75 mg capsule,extended 75 mg PO QAM #90 caps 03/06/24 04/03/24 release 24 hr Previous Rx's ?Medication ?Instructions ?Recorded ibuprofen 600 mg tablet 600 mg PO TID PRN pain #180 tabs 02/08/23 metoprolol succinate 25 mg 25 - 50 mg (1 - 2 x 25 mg) PO 10/13/23 tablet,extended release 24 hr DAILY #180 tabs venlafaxine 75 mg capsule,extended 75 mg PO QAM #90 caps 03/06/24 release 24 hr Allergies Allergy/AdvReac Type Severity Reaction Status Date / Time No Known Allergies Allergy Verified 04/03/24 17:58 General Stated Complaint: Laceration SIMON: 4 Exam Narrative Exam Narrative: Alert oriented interactive 1 cm linear laceration to right lower eyelid hemostatic no foreign body no evidence of globe involvement, extraocular motion intact pupils round equal reactive to light, visual acuity OD 20/20, OS 20/30, no proptosis Speaking full sentences no respiratory distress Ambulatory without assistance moving all extremities, no ataxia Course Vital Signs Vital signs: Vital Signs Pulse 68 04/03/24 18:02 Respiratory Rate 18 04/03/24 18:02 Blood Pressure 132/85 04/03/24 18:02 Pulse Oximetry 95 04/03/24 18:02 Pulse 68 04/03/24 18:02 Respiratory Rate 18 04/03/24 18:02 Respiratory Effort Normal, Non-Labored 04/03/24 18:00 Blood Pressure 132/85 04/03/24 18:02 Blood Pressure Position Supine 04/03/24 18:02 Pulse Oximetry 95 04/03/24 18:02 Oxygen Delivery Method Room Air 04/03/24 18:02 Oxygen Flow Rate 0 04/03/24 18:02 Procedures Laceration Laceration 1: Site: face Side (If applicable): right Size (cm): 1 Description: linear Depth: simple, single layer Local anesthetic: Lidocaine 1% Amount of anesthesia used (mL): 0.5 Pre-repair: wound explored, irrigated extensively and deep structures intact Skin layer closed with: other (Chromic Gut) Size (cm): 5-0 Number of sutures: 1 Medical Decision Making 73-year-old male sustained 1 cm laceration to right lower eyelid, vision intact, no evidence of globe involvement, tetanus is up-to-date, hemodynamically stable alert oriented interactive ambulatory without assistance no ataxia, vision 20/20 in affected eye OD, 20/30 OS, pupils round equal reactive to light, no proptosis, wound anesthetized with approximately 0.5 cc 1% lidocaine without epinephrine, irrigated with normal saline, hemostatic no foreign bodies wound extends into subcutaneous tissue, closed with 5-0 Chromic Gut, home care instructions and return precautions given. Quality:SDOH Health Related Social Needs: No Data to Display PFSH All Active Problems (Updated 04/03/24 @ 18:19 by Maximilian Young MD) Eyelid laceration (Acute) Wears hearing aid in both ears (Acute) SLAP lesion of left shoulder (Acute ~08/2021) Palpitations (Acute) Shoulder pain (Acute) Charcot Deanna Tooth muscular atrophy (Acute) Skin lesion (Acute) Atrial fibrillation (Chronic) echo EF 59% Tubular adenoma of colon (Acute) Biceps tendinitis of left shoulder (Acute) Sensorineural hearing loss of combined sites, bilateral (Acute 06/21/17) Medical History (Updated 04/03/24 @ 18:19 by Maximilian Young MD) Abdominal pain Left shoulder pain Tachycardia Close exposure to COVID-19 virus COVID-19 Annual physical exam Fatigue Hyperplastic colon polyp Encounter for colorectal cancer screening Shoulder pain, acute TMJ (dislocation of temporomandibular joint) (05/21/15) Peripheral neuropathy (05/21/15) Postoperative wound infection of left hip Benign non-nodular prostatic hyperplasia with lower urinary tract symptoms (05/21/15) 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) Pain in hip region after hip replacement Surgical History (Updated 08/01/21 @ 06:40 by Kinjal Kelly RN) History of colonoscopy (~07/2021) History of arthroplasty of left hip 2015 Diagnostic Laproscopy (12/20/17) VENTRAL HERNIA NORMAL EXAM;[facility] Family History (Updated 07/22/23 @ 13:05 by Jailene Calvin) Mother , at 98 Breast cancer Dementia Depression and anxiety Father , at 52 Alcohol use disorder Depression and anxiety Social History (Updated 07/22/23 @ 13:03 by Jailene Calvin) Smoking/Tobacco Use Status: Never Smoking risk assessment performed?: Yes Alcohol Intake: current Alcohol Intake frequency: a few times a week Alcohol type: beer Drug use: Never Substance use type: does not use Adopted: No Caregiver/Support person: No Foster care: No Housing: house Number of Children: 3 number of grandchildren: 3 Education Level: other Details: Doctorate Do you need help understanding health information?: Never current occupation: Physician Pets and animals: No Sexually active: Yes Do you think of yourself as: straight/heterosexual Current gender identity: male What is your relationship status?: How often do you talk on the phone with friends or family?: three or more times per week How often do you get together with friends or relatives?: three or more times per week Do you belong to any clubs or organized social groups?: yes Panel score (0-1 are the most socially isolated patients): 3 What type of physical activity do you participate in: other Details: Hiking, Gym Duration: 45-60 minutes/day Frequency: 5-6 times per week Destiny/Congregational: Non quaker Agree to transfusion: Yes Seatbelt use: always Helmet use: Yes Helmet use: always Drive intox or ride w/intox bus driver/monitor: No Do you feel safe at home: Yes Do you feel safe in your relationship?: Yes
== END 2024-04-03 18:32 | disposition home or self-care (01) ==
PROVIDERS: Emergency Provider Emergency Medicine; PCP Family Medicine
DX: S01.111A Laceration without foreign body of right eyelid and periocular area, initial encounter (principal); W22.8XXA Striking against or struck by other objects, initial encounter
CPT/HCPCS: 12011; J2003

== ENCOUNTER 2024-05-11 02:12 | Outpatient (CLI) | payer MEDICARE, OTHER, SELFPAY ==
--- NOTE | 2024-05-11 06:45 | DI.MRI_ITS ---
Exam(s) MR UPPER JOINT LT WO EXAM: MR UPPER JOINT LT WO CLINICAL HISTORY: left shoulder pain, r/u RTC tear,slap lesion,s43.432a,m75.22,m25.519. TECHNIQUE: Multiplanar multisequence MRI was performed. COMPARISON: CR XR SHOULDER LT COMPLETE 2+V from 07/20/2023 FINDINGS: BONES: There is no fracture or contusion pattern. JOINTS: The glenohumeral joint is normal. There is mild arthrosis seen at the acromioclavicular joint and greater tuberosity. TENDONS: Supraspinatus: There are areas of hyperintense signal seen within the substance of the supraspinatus tendon consistent with a partial tear. Infraspinatus: Unremarkable. Subscapularis: Unremarkable. Teres Minor: Unremarkable. Biceps and [place]: Unremarkable. MUSCLES: Unremarkable. GLENOID LABRUM: No evidence of a large labral defect on this noncontrast examination. There is some blunting of the posterior superior labrum which may represent degeneration. SOFT TISSUES: Unremarkable. LIGAMENTS: Unremarkable. OTHER: There is a small amount of hyperintense signal seen in the subdeltoid bursa. This may represe nt a small amount of fluid. IMPRESSION: 1. Partial intrasubstance tear of the supraspinatus tendon. No evidence of a full-thickness tear. 2. Arthrosis of the left shoulder. DATA REPOSITORY:
== END 2024-05-11 02:32 ==
PROVIDERS: PCP Family Medicine; Visit Provider Student in an Organized Health Care Education/Training Program
DX: S43.432D Superior glenoid labrum lesion of left shoulder, subsequent encounter; X58.XXXD Exposure to other specified factors, subsequent encounter
CPT/HCPCS: 73221

== ENCOUNTER → 2024-05-23 12:54 | Outpatient (BNVA) | payer MEDICARE, OTHER, SELFPAY | PROVIDERS: PCP Family Medicine; Referring Provider Family Medicine; Visit Provider Student in an Organized Health Care Education/Training Program | DX: M75.102 Unspecified rotator cuff tear or rupture of left shoulder, not specified as traumatic (principal); M75.22 Bicipital tendinitis, left shoulder; M12.812 Other specific arthropathies, not elsewhere classified, left shoulder; S43.432A Superior glenoid labrum lesion of left shoulder, initial encounter; X58.XXXA Exposure to other specified factors, initial encounter | CPT/HCPCS: 99214 ==

== ENCOUNTER 2024-08-14 20:31 | Outpatient (REF) | payer MEDICARE, OTHER, SELFPAY ==
[2024-08-14 22:09] LABS: TSH (W/Ref FT4) 1.04 uIU/mL (0.36-3.74)
[2024-08-15 20:08] LABS: PSA, Diagnostic 0.4 ng/mL (<=6.5)
== END 2024-08-14 20:32 | disposition home or self-care (01) ==
LOC: LBN 20:31
PROVIDERS: PCP Family Medicine; Visit Provider Family Medicine
DX: R63.5 Abnormal weight gain (principal); N40.0 Benign prostatic hyperplasia without lower urinary tract symptoms
CPT/HCPCS: 84153; 84443

== ENCOUNTER 2025-06-28 16:44 | Outpatient (REF) | payer MEDICARE, OTHER, SELFPAY ==
[2025-06-28 17:51] LABS: Hemoglobin A1C 5.5 % (<5.7)
[2025-06-28 17:59] LABS: TSH (W/Ref FT4) 1.38 uIU/mL (0.55-4.78)
[2025-06-28 18:05] LABS: ALT 17 U/L (10-49); AST 27 U/L (<34); Albumin 4.3 g/dL (3.4-5.0); Alkaline Phosphatase 45 U/L (46-116); Anion Gap 6.1 mmol/L (3-11); BUN 22 mg/dL (9-23); Bilirubin, Total 0.90 mg/dL (0.2-1.2); CO2 26.9 mmol/L (20.0-31.0); Calcium 9.5 mg/dL (8.3-10.6); Chloride 110 mmol/L (98-107); Cholesterol 167 mg/dL (<200); Glucose 93 mg/dL (74-106); HDL Cholesterol 86 mg/dL (>40); Potassium 4.1 mmol/L (3.5-5.1); Sodium 143 mmol/L (136-145); Total Protein 6.8 g/dL (5.7-8.2)
== END 2025-06-28 16:45 | disposition home or self-care (01) ==
LOC: LBN 16:44
PROVIDERS: PCP Family Medicine; Visit Provider Family Medicine
DX: I10 Essential (primary) hypertension (principal); R00.2 Palpitations; E11.9 Type 2 diabetes mellitus without complications
CPT/HCPCS: 80053; 80061; 82533; 83036; 84443